=== PATIENT | male | born 1995 | race Caucasian/White ===

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

== ENCOUNTER → 2019-09-05 | Outpatient (CLI) | payer OTHER ==
[2019-09-05 14:25] LABS: HCT (SEDRATE) 47.2 % (39.2-51.8)
[2019-09-05 15:02] LABS: FOLATE LEVEL 17.4 ng/mL (3.1-17.5)
== END | disposition home or self-care (01) ==
LOC: LAB 13:56
PROVIDERS: ATTEND Psychiatry & Neurology Neurology
DX: G95.9 Disease of spinal cord, unspecified (principal)
CPT/HCPCS: 36415; 82390; 82525; 82607; 82746; 83516; 85651; 86038; 86160; 86225; 86235; 86255; 86256; 86376; 86431

== ENCOUNTER → 2019-11-02 | Outpatient (CLI) | payer OTHER ==
[2019-11-02 12:25] LABS: BASOPHILS # (AUTO) 0.03 x10^3/uL (0-0.1); BASOPHILS % (AUTO) 1 % (0-1); EOSINOPHILS # (AUTO) 0.05 x10^3/uL (0-0.4); EOSINOPHILS % (AUTO) 1 % (1-7); LYMPHOCYTES # (AUTO) 2.51 x10^3/uL (1-3.4); LYMPHOCYTES % (AUTO) 35 % (22-44); MD NO; MEAN CORPUSCULAR HEMOGLOBIN 31.9 pg (27.5-34.5); MEAN CORPUSCULAR HGB CONC 33.9 g/dL (33.2-36.2); MEAN CORPUSCULAR VOLUME 94.1 fL (81-97); MEAN PLATELET VOLUME 10.3 fL (7.4-10.4); MONOCYTES # (AUTO) 0.49 x10^3/uL (0.2-0.8); MONOCYTES % (AUTO) 7 % (2-9); NEUTROPHILS % (AUTO) 57 % (42-75); PLATELET COUNT 175 x10^3/uL (130-400); RED BLOOD COUNT 5.23 x10^6/uL (4.38-5.82); RED CELL DISTRIBUTION WIDTH 12.3 % (9.4-14.8)
[2019-11-02 13:04] LABS: CHOL/HDL RATIO 2.8; LDL/HDL RATIO 1.4 (0.5-3.0)
== END | disposition home or self-care (01) ==
LOC: LAB 12:03
PROVIDERS: ATTEND Family Medicine
DX: E61.1 Iron deficiency (principal); R79.89 Other specified abnormal findings of blood chemistry
CPT/HCPCS: 36415; 80061; 82728; 83540; 83550; 84466; 85025

== ENCOUNTER 2019-11-20 12:10 | Outpatient (CLI) | payer OTHER ==
[2019-11-20] MEDS ORDERED: OMNIPAQUE 350 MG/ML, 100ML BOTTLE ONE (13:45)
== END 2019-11-20 23:59 | disposition home or self-care (01) ==
LOC: CFH 12:10
PROVIDERS: ATTEND Family Medicine
DX: K51.919 Ulcerative colitis, unspecified with unspecified complications (principal); M79.10 Myalgia, unspecified site
CPT/HCPCS: 74177; Q9967

== ENCOUNTER 2019-11-22 08:04 | Outpatient (CLI) | payer OTHER | END 2019-11-22 23:59 | disposition home or self-care (01) | LOC: CFH 08:04 | PROVIDERS: ATTEND Family Medicine | DX: Z02.9 Encounter for administrative examinations, unspecified (principal) ==

== ENCOUNTER 2019-12-29 13:54 | Observation (INO) | payer OTHER ==
[~2019-12-29] VITALS: Ht 185.4 cm; Wt 70.7 kg
[2019-12-29] MEDS ORDERED: SODIUM CHLORIDE FLUSH 10ML SYR IVF ONE (14:30)
[2019-12-29 14:44] LABS: BASOPHILS # (AUTO) 0.02 x10^3/uL (0-0.1); BASOPHILS % (AUTO) 0 % (0-1); EOSINOPHILS # (AUTO) 0.02 x10^3/uL (0-0.4); EOSINOPHILS % (AUTO) 0 % (1-7); LYMPHOCYTES # (AUTO) 1.46 x10^3/uL (1-3.4); LYMPHOCYTES % (AUTO) 20 % (22-44); MD NO; MEAN CORPUSCULAR HEMOGLOBIN 32.2 pg (27.5-34.5); MEAN CORPUSCULAR HGB CONC 33.9 g/dL (33.2-36.2); MEAN CORPUSCULAR VOLUME 94.9 fL (81-97); MEAN PLATELET VOLUME 10.1 fL (7.4-10.4); MONOCYTES # (AUTO) 0.34 x10^3/uL (0.2-0.8); MONOCYTES % (AUTO) 5 % (2-9); NEUTROPHILS % (AUTO) 75 % (42-75); PLATELET COUNT 187 x10^3/uL (130-400); RED BLOOD COUNT 5.16 x10^6/uL (4.38-5.82)
[2019-12-29 14:52] LABS: ALANINE AMINOTRANSFERASE 22 U/L (12-78); ANION GAP 4 mmol/L (5-15); CALCIUM 10.5 mg/dL (8.5-10.1); CHLORIDE 111 mmol/L (98-107); CREATININE 1.02 mg/dL (0.7-1.3)
--- NOTE | 2019-12-29 14:54 | NUR ---
[employer]: PT TO ROOM FROM LOBBY VIA W/C
[2019-12-29 14:55] LABS: ALKALINE PHOSPHATASE 78 U/L (45-117); BILIRUBIN,TOTAL 1.5 mg/dL (0.2-1.0)
[2019-12-29] MEDS ORDERED: ONDANSETRON 2MG/ML, 2ML ONE (15:24)
[2019-12-29] MEDS ORDERED: KETAMINE 10 MG/ML, 20ML ONE (15:25)
[2019-12-29] MEDS ORDERED: ONDANSETRON 2MG/ML, 2ML IVPush ONE (15:30)
[2019-12-29] MEDS ORDERED: KETAMINE 10 MG/ML, 20ML IV ONE ×2 (15:30→16:30)
[2019-12-29] MEDS ORDERED: SODIUM CHLORIDE 0.9% 1,000ML IVBOLUS ONE (15:30)
[2019-12-29 16:07] LABS: MICROSCOPIC NOT IND
[2019-12-29] MEDS ORDERED: HYDROmorphone 1 MG/ML, 1ML INJ ONE ×2 (16:40→17:26)
[2019-12-29] MEDS: HYDROmorphone 2 MG/ML, 1ML IVPush PRN ×3 (16:44→20:00)
--- NOTE | 2019-12-29 16:45 | NUR ---
PT MEDICATED WITH DILAUDID KETAMINE WAS INNEFFECTIVE. DR. LIU AT BEDSIDE.
[2019-12-29] MEDS ORDERED: OMNIPAQUE 350 MG/ML, 100ML BOTTLE ONE (17:09)
[2019-12-29] MEDS ORDERED: DICYCLOMINE 10 MG/ML, 2ML ONE (17:47)
[2019-12-29] MEDS ORDERED: LIDOCAINE 2%,20 ML JEL.PF.APP MM ONE ×2 (17:53→18:00)
[2019-12-29] MEDS ORDERED: DICYCLOMINE 10 MG/ML, 2ML IM ONE (18:00)
--- NOTE | 2019-12-29 18:47 | NUR ---
REPORT RECIEVED FROM NICOLE LINDSEY. PT RESTING ON GURNEY WITH MOTHER AT BS, MONITORING IN PLACE, CALL LIGHT WITHIN REACH.
[2019-12-29] MEDS ORDERED: CETI10TA76 PO (19:00)
[2019-12-29] MEDS ORDERED: MESA800T9 PO (19:00)
[2019-12-29] MEDS ORDERED: MAGN400T9 PO (19:01)
[2019-12-29] MEDS ORDERED: TRAM100T33 PO (19:01)
--- NOTE | 2019-12-29 19:27 | NUR ---
SECOND ATTEMPT TO CALL REPORT
--- NOTE | 2019-12-29 20:05 | NUR ---
PT MEDICATED PER JUL. UPDATED ON POC. UPDATED MOTHER ON HOSPITAL VISITING HOURS.
[2019-12-29 20:36] VITALS: BP 112/76
[2019-12-29] MEDS ORDERED: ONDANSETRON 2MG/ML, 2ML IVPush PRN (22:00)
[2019-12-29] MEDS ORDERED: PROMETHAZINE 25 MG/ML, 1ML IM PRN (22:00)
[2019-12-29] MEDS ORDERED: LACTATED RINGERS 1,000 ML IV SCH (22:00)
[2019-12-29] MEDS ORDERED: hydrALAzine 20 MG/ML, 1ML IVPush PRN (22:00)
[2019-12-29] MEDS: AMITRIPTYLINE 10 MG TABLET PO SCH (23:05)
[2019-12-29] MEDS: ACETAMINOPHEN 325 MG TABLET PO PRN (23:14)
[2019-12-30 00:20] VITALS: BP 113/68
[2019-12-30 05:59] LABS: BASOPHILS # (AUTO) 0.03 x10^3/uL (0-0.1); BASOPHILS % (AUTO) 0 % (0-1); EOSINOPHILS # (AUTO) 0.08 x10^3/uL (0-0.4); EOSINOPHILS % (AUTO) 1 % (1-7); LYMPHOCYTES # (AUTO) 2.63 x10^3/uL (1-3.4); LYMPHOCYTES % (AUTO) 32 % (22-44); MD NO; MEAN CORPUSCULAR HEMOGLOBIN 32.1 pg (27.5-34.5); MEAN CORPUSCULAR HGB CONC 33.7 g/dL (33.2-36.2); MEAN CORPUSCULAR VOLUME 95.1 fL (81-97); MEAN PLATELET VOLUME 10.8 fL (7.4-10.4); MONOCYTES # (AUTO) 0.57 x10^3/uL (0.2-0.8); MONOCYTES % (AUTO) 7 % (2-9); NEUTROPHILS # (AUTO) 4.81 x10^3/uL (1.8-6.8); NEUTROPHILS % (AUTO) 59 % (42-75); PLATELET COUNT 156 x10^3/uL (130-400); RED BLOOD COUNT 4.52 x10^6/uL (4.38-5.82); RED CELL DISTRIBUTION WIDTH 12.6 % (9.4-14.8)
[2019-12-30 06:05] LABS: ANION GAP 4 mmol/L (5-15); CALCIUM 9.5 mg/dL (8.5-10.1); CHLORIDE 110 mmol/L (98-107)
[2019-12-30 06:06] LABS: CREATININE 0.95 mg/dL (0.7-1.3)
[2019-12-30 07:01] VITALS: BP 111/69
[2019-12-30] MEDS: POLYETHYLENE GLYCOL 17 GM PACKET PO SCH (09:29)
[2019-12-30] MEDS: MESALAMINE 400 MG CAPSULE.DR PO SCH ×2 (09:29→21:32)
[2019-12-30] MEDS: MAGNESIUM OXIDE 400 MG TABLET PO SCH ×3 (09:29→21:33)
[2019-12-30 13:23] VITALS: BP 109/69
[2019-12-30] MEDS ORDERED: GADOTERATE 7.5 MMOL/15 ML SYR ONE (15:51)
[2019-12-30] MEDS ORDERED: LIDOCAINE JELLY 2%, 30GM TP ONE (16:00)
[2019-12-30] MEDS: ACETAMINOPHEN 325 MG TABLET PO PRN ×2 (16:57→23:14)
[2019-12-30] MEDS ORDERED: HYDROCORTISONE PR PRN (17:30)
[2019-12-30] MEDS ORDERED: NIFEDIPINE PR PRN (17:30)
[2019-12-30] MEDS ORDERED: LIDOCAINE PR PRN (17:30)
[2019-12-30 20:27] VITALS: BP 115/74
[2019-12-30] MEDS ORDERED: CETIRIZINE 10 MG TABLET PO SCH (21:00)
[2019-12-30] MEDS: AMITRIPTYLINE 10 MG TABLET PO SCH (21:32)
[2019-12-30] MEDS: morphine SULFATE 10 MG/ML, 1ML IVPush PRN ×2 (21:35→22:20)
[2019-12-31 00:37] VITALS: BP 110/50
[2019-12-31 07:10] VITALS: BP 111/66
[2019-12-31] MEDS ORDERED: MESALAMINE 400 MG CAPSULE.DR PO SCH (09:00)
[2019-12-31] MEDS: MAGNESIUM OXIDE 400 MG TABLET PO SCH (09:35)
[2019-12-31] MEDS: POLYETHYLENE GLYCOL 17 GM PACKET PO SCH (09:35)
[2019-12-31] MEDS: ACETAMINOPHEN 325 MG TABLET PO PRN (09:52)
[2019-12-31] MEDS ORDERED: AMIT10TA PO (10:23)
== END 2019-12-31 13:27 | disposition home or self-care (01) ==
LOC: ED 17:44 → EDIP 18:24 → INTOOBSV 18:24 → 3N 20:10
PROVIDERS: ADMIT Family Medicine; ATTEND Internal Medicine
DX: K51.90 Ulcerative colitis, unspecified, without complications (principal); T40.605A Adverse effect of unspecified narcotics, initial encounter; K59.03 Drug induced constipation; E83.52 Hypercalcemia; K62.89 Other specified diseases of anus and rectum; G62.9 Polyneuropathy, unspecified; Z79.899 Other long term (current) drug therapy
CPT/HCPCS: 36415; 72197; 74022; 74177; 80048; 80053; 81003; 83690; 83735; 84100; 84443; 85025; 96361; 96365; 96372; 96375; 96376; 99285; A9575; G0378; J0500; J1170; J2270; J2405; J7030; J7120; Q9967; 96374

== ENCOUNTER → 2020-02-26 | Outpatient (CLI) | payer OTHER ==
[~2020-02-26] MED LIST changes: +AMIT10TA PO; +CETI10TA76 PO; +MAGN400T9 PO; +MESA800T9 PO; +TRAM100T33 PO
[2020-02-26 12:21] LABS: BASOPHILS % (AUTO) 1 % (0-1); EOSINOPHILS % (AUTO) 1 % (1-7); LYMPHOCYTES % (AUTO) 43 % (22-44); MEAN CORPUSCULAR HEMOGLOBIN 32.8 pg (27.5-34.5); MEAN CORPUSCULAR HGB CONC 33.6 g/dL (33.2-36.2); MEAN PLATELET VOLUME 9.8 fL (7.4-10.4); MONOCYTES % (AUTO) 7 % (2-9); NEUTROPHILS % (AUTO) 48 % (42-75); PLATELET COUNT 198 x10^3/uL (130-400); RED BLOOD COUNT 4.87 x10^6/uL (4.38-5.82); RED CELL DISTRIBUTION WIDTH 12.9 % (9.4-14.8)
[2020-02-26 12:27] LABS: CALCIUM 9.6 mg/dL (8.5-10.1); CHLORIDE 104 mmol/L (98-107)
[2020-02-26 12:30] LABS: MD NO
[2020-02-26 13:08] LABS: ALANINE AMINOTRANSFERASE 49 U/L (12-78); ALBUMIN 4.6 g/dL (3.4-5.0); ALKALINE PHOSPHATASE 89 U/L (45-117); ANION GAP 5 mmol/L (5-15); CHOL/HDL RATIO 2.7; CHOLESTEROL, TOTAL 162 mg/dL (140-239); FREE T4 (FREE THYROXINE) 1.02 ng/dL (0.76-1.46); HDL CHOL % 38 % (26-37); HDL CHOLESTEROL (DIRECT) 61 mg/dL (40-60); LDL CHOLESTEROL,CALCULATED 86 mg/dL (54-169); LDL/HDL RATIO 1.4 (0.5-3.0); TOTAL PROTEIN 7.6 g/dL (6.4-8.2); TRIGLYCERIDES 75 mg/dL (50-200); VLDL CHOLESTEROL 15 mg/dL (0-25)
== END | disposition home or self-care (01) ==
LOC: LAB 11:46
PROVIDERS: ATTEND Family Medicine
DX: E78.5 Hyperlipidemia, unspecified (principal); R53.83 Other fatigue; E55.9 Vitamin D deficiency, unspecified; Z79.899 Other long term (current) drug therapy
CPT/HCPCS: 36415; 80053; 80061; 82150; 82306; 83690; 84439; 84443; 84481; 85025; 86376; 86800

== ENCOUNTER → 2020-06-05 | Outpatient (CLI) | payer OTHER ==
[2020-06-05 10:11] LABS: ALANINE AMINOTRANSFERASE 16 U/L (12-78); ALBUMIN 4.6 g/dL (3.4-5.0); ANION GAP 4 mmol/L (5-15); CALCIUM 9.6 mg/dL (8.5-10.1); CHLORIDE 110 mmol/L (98-107); CREATININE 0.99 mg/dL (0.7-1.3)
[2020-06-05 10:21] LABS: ALKALINE PHOSPHATASE 72 U/L (45-117); TOTAL PROTEIN 7.4 g/dL (6.4-8.2)
== END | disposition home or self-care (01) ==
LOC: LAB 09:37
PROVIDERS: ATTEND Family Medicine
DX: Z13.21 Encounter for screening for nutritional disorder (principal); E03.9 Hypothyroidism, unspecified; Z79.899 Other long term (current) drug therapy
CPT/HCPCS: 36415; 80053; 82306; 84443